=== PATIENT | male | born 1950 | race African-American/Black ===

== ENCOUNTER 2016-07-10 00:20 | Emergency (ER) | payer MEDICARE, MEDICAID, OTHER ==
[~2016-07-10 00:20] MED LIST: 1-ME1LIQ PO; ADVI200C9 PO; AMLO10 PO; ASPI1TAB7 PO; BENZ1TAB PO; DEPA500T PO; DEPA500T3 PO; FERR324T4 PO; FURO1TAB93 PO; HYDR-2768 PO; Haldol Decanoate IM; INVEGA SUSTENNA IM; LATUDA PO; LORA-474 PO; MELO15 PO; METO50TA PO; METOPROLOL ER PO; OLAN15TA PO; OLAN5TAB PO; PALI234P IM; SODI1 PO; SPIR25TA PO; TYLE500T PO; [UNRECOGNIZED DRUG - OTHER] TOP
[2016-07-10 01:03] VITALS: BP 130/71; PULSE 57; RESP 14; TEMP 97.4; O2SAT 99
--- NOTE | 2016-07-10 01:03 | PD ---
HPI Chief Complaint: Abnormal Results Time Seen by Provider: 01:00 Travel History International Travel<30 days: No Contact w/Intl Traveler<30days: No History of Present Illness HPI The patient is a 66 year old male who presents to the [facility] emergency department with a history of mental health issues, currently residing at [facility] who arrives in the emergency department under a Enriquez act. The patient refuses to give any history. He reports that he feels well over like to go back home. According to the Enriquez act the patient has a history of schizophrenia and is on multiple psychiatric medications. The patient was noted to have blood work done that showed his sodium was low at 123. They sent him to the emergency department for concerns about weakness and the possibility of seizing if the sodium went lower. The patient denies having any acute complaints. The patient refuses to provide any other history. [facility] Past Medical History Narrative Medical The patient's past medical history is significant for schizophrenia, hypertension, hepatitis C. Anxiety: No Depression: Yes Cerebrovascular Accident: Yes Endocrine: No Genitourinary: No Hepatitis: Yes (Hep C) Hypertension: Yes Immune Disorder: No Psychiatric: Yes Reproductive: No Respiratory: No Schizophrenia: Yes PNEUMOCCOCAL Vaccine (Year): 3 Past Surgical History Narrative Surgical The patient's past surgical history is not able to be obtained as the patient refuses to provide it. Social History Alcohol Use: No Tobacco Use: No Substance Use: No Allergies-Medications (Allergen,Severity, Reaction): Coded Allergies: No Known Allergies (Verified , 07/10/16) Reported Meds & Prescriptions Reported Meds & Active Scripts Active Reported Spironolactone 25 Mg Tab 25 Mg PO DAILY Olanzapine 15 Mg Tab 15 Mg PO HS Olanzapine 5 Mg Tab 5 Mg PO DAILY Metoprolol Tartrate 50 mg (Metoprolol Tartrate) 50 Mg Tab 50 Mg PO BID Mobic 15 Mg Tab (Meloxicam) 15 Mg Tab 15 Mg PO DAILY Invega Sustenna (Paliperidone Palmitate) 234 Mg/1.5 Ml Inj 234 Mg IM EVERY 4 WEEKS *FOR INTRAMUSCULAR USE ONLY* Lasix (Furosemide) 40 Mg Tab 40 Mg PO DAILY Aspirin 81 mg Tab (Aspirin) 81 Mg Tab 162 Mg PO DAILY Norvasc (Amlodipine Besylate) 10 Mg Tab 10 Mg PO DAILY Depakote ER 500 mg (Divalproex Sodium) 500 Mg Rosales 1,000 Mg PO HS Depakote ER 500 mg (Divalproex Sodium) 500 Mg Rosales 500 Mg PO DAILY Review of Systems ROS Limitations: Poor Historian Except as stated in HPI: all other systems reviewed are Neg General / Constitutional: No: Fever Eyes: No: Visual changes HENT: No: Headaches Cardiovascular: No: Chest Pain or Discomfort Respiratory: No: Shortness of Breath Gastrointestinal: No: Abdominal Pain Genitourinary: No: Dysuria Musculoskeletal: No: Pain Skin: No Rash Neurologic: No: Weakness, Focal Abnormalities, Change in Mentation, Paresthesia , Sensory Disturbance Psychiatric: Positive: Mood Disorder, No: Depression, Suicidal Ideations, Homicidal Ideation Endocrine: No: Polydipsia Hematologic/Lymphatic: No: Easy Bruising Physical Exam Narrative General: The patient is a well-developed well-nourished male in no acute distress. Head and Neck exam: Head is normocephalic atraumatic. Eyes: The patient is uncooperative with formal extraocular motion testing. The patient appears to have conjugate gaze when looking about the room. Pupils are equal round and reactive to light. Nose: Midline septum with pink mucous membranes Mouth: Dentition unremarkable. Moist mucus membranes. Posterior oropharynx is not erythematous. No tonsillar hypertrophy. Uvula midline. Airway patent. Neck: No palpable lymphadenopathy. No nuchal rigidity. No thyromegaly. Cardiovascular: Regular rate and rhythm without murmurs, gallops, or rubs. Lungs: Clear to auscultation bilaterally. No wheezes, rhonchi, or rales. Abdomen: Soft, without tenderness to palpation in all 4 quadrants of the abdomen. No guarding, rebound, or rigidity. Normal bowel sounds are audible. No tenderness on palpation of McBurney's point. Extremities: No clubbing or cyanosis. The patient has trace pedal edema bilateral lower extremities. 2+ pulses in all 4 extremities. No calf tenderness on palpation. Back: No spinous process tenderness to palpation. No costovertebral angle tenderness to palpation. Neurologic Exam: The patient is uncooperative with formal neurologic testing. The patient has no evidence of facial asymmetry. The patient is moving all extremities equally and able to walk without assistance. The patient has intact sensation over all dermatomes. Skin Exam: No rash noted. Intact skin that is warm and dry. Data Data Last Documented VS Vital Signs Date Time Temp Pulse Resp B/P Pulse Ox O2 Delivery O2 Flow Rate FiO2 07/10/16 07:00 66 18 119/77 96 Room Air 07/10/16 01:03 97.4 Orders Electrocardiogram (07/10/16 01:01) Complete Blood Count With Diff (07/10/16 01:01) Comprehensive Metabolic Panel (07/10/16 01:01) B-Type Natriuretic Peptide (07/10/16 01:01) Urinalysis - C+S If Indicated (07/10/16 01:01) Magnesium (Mg) (07/10/16 01:01) Valproic Acid (Depakene) (07/10/16 01:01) Osmolality, Urine (07/10/16 01:01) Osmolality,Serum (07/10/16 01:01) Chest, Single Ap (07/10/16 01:01) Iv Access Insert/Monitor (07/10/16 01:01) Ecg Monitoring (07/10/16 01:01) Oximetry (07/10/16 01:01) Drug Screen, Random Urine (07/10/16 01:01) Alcohol (Ethanol) (07/10/16 01:01) Sodium, Random Urine (07/10/16 01:01) Psych Screen (07/10/16 02:28) Labs Laboratory Tests Test 07/10/16 07/10/16 01:30 02:25 White Blood Count 5.0 TH/MM3 Red Blood Count 4.07 MIL/MM3 Hemoglobin 11.9 GM/DL Hematocrit 35.5 % Mean Corpuscular Volume 87.3 FL Mean Corpuscular Hemoglobin 29.2 PG Mean Corpuscular Hemoglobin 33.4 % Concent Red Cell Distribution Width 13.3 % Platelet Count 168 TH/MM3 Mean Platelet Volume 8.9 FL Neutrophils (%) (Auto) 30.4 % Lymphocytes (%) (Auto) 55.3 % Monocytes (%) (Auto) 8.8 % Eosinophils (%) (Auto) 4.8 % Basophils (%) (Auto) 0.7 % Neutrophils # (Auto) 1.5 TH/MM3 Lymphocytes # (Auto) 2.7 TH/MM3 Monocytes # (Auto) 0.4 TH/MM3 Eosinophils # (Auto) 0.2 TH/MM3 Basophils # (Auto) 0.0 TH/MM3 CBC Comment DIFF FINAL Differential Comment Sodium Level 131 MEQ/L Potassium Level 4.6 MEQ/L Chloride Level 95 MEQ/L Carbon Dioxide Level 30.8 MEQ/L Anion Gap 5 MEQ/L Blood Urea Nitrogen 10 MG/DL Creatinine 1.20 MG/DL Estimat Glomerular Filtration 74 ML/MIN Rate Random Glucose 90 MG/DL Serum Osmolality 275 MOSM/KG Calcium Level 9.0 MG/DL Magnesium Level 2.0 MG/DL Total Bilirubin 0.3 MG/DL Aspartate Amino Transf 22 U/L (AST/SGOT) Alanine Aminotransferase 22 U/L (ALT/SGPT) Alkaline Phosphatase 58 U/L B-Type Natriuretic Peptide 23 PG/ML Total Protein 6.9 GM/DL Albumin 3.6 GM/DL Valproic Acid (Depakene) Level 77 MCG/ML Ethyl Alcohol Level LESS THAN 3 MG/DL Urine Color COLORLESS Urine Turbidity CLEAR Urine pH 7.0 Urine Specific [place] 1.002 Urine Protein NEG mg/dL Urine Glucose (UA) NEG mg/dL Urine Ketones NEG mg/dL Urine Occult Blood NEG Urine Nitrite NEG Urine Bilirubin NEG Urine Urobilinogen LESS THAN 2.0 MG/DL Urine Leukocyte Esterase NEG Urine RBC LESS THAN 1 /hpf Urine WBC 1 /hpf Urine Bacteria RARE /hpf Microscopic Urinalysis Comment CULT NOT INDICATED Urine Osmolality 104 MOSM/KG Urine Random Sodium 26 MEQ/L Urine Opiates Screen NEG Urine Barbiturates Screen NEG Urine Amphetamines Screen NEG Urine Benzodiazepines Screen NEG Urine Cocaine Screen NEG Urine Cannabinoids Screen NEG [facility] Medical Decision Making Medical Screen Exam Complete: Yes Emergency Medical Condition: Yes Medical Record Reviewed: Yes Interpretation(s) Last Impressions Chest X-Ray 07/10/16 0101 Signed Impressions: Service Date/Time: Sunday, July 10, 2016 01:00 - CONCLUSION: Normal examination. Jesse Rabago MD Differential Diagnosis Hyponatremia related to medication side effect, versus fluid overload, versus increased by mouth water intake, versus renal insufficiency Narrative Course During the course of the patients emergency department visit, the patients history, examination, and differential diagnosis were reviewed with the patient. The patient had IV access obtained and blood work sent for analysis. The patient's Enriquez act was reviewed. A psychiatric screen was ordered. The patient had an EKG done on arrival. The patient's EKG shows a sinus bradycardia , heart rate of 54, no acute ST segment elevation or depression. The patients laboratory studies were reviewed and remarkable for a white count of 5, hemoglobin 11.9, platelets 168 with lymphocytes 55.3, monocytes 8.8, CMP is remarkable for sodium of 131, chloride 95, GFR 74, BNP is 23, albumin 3.6, serum osmolality is 275, urinalysis is unremarkable, urinalysis osmolality is 104, urinary sodium is 26, urine drug screen is negative, Depakote level LXXVII , alcohol level is less than 3. Radiology studies were reviewed and remarkable for a chest x-ray that shows no acute abnormality. As the patient's sodium was 131. This does not meet admission criteria. The patient is asymptomatic. The patient has been medically cleared for evaluation under a Enriquez act. Diagnosis Primary Impression: Hyponatremia Additional Impression: History of schizophrenia Anni Pond MD Jul 10, 2016 01:03
[2016-07-10 01:12] VITALS: RESP 16; O2SAT 99
--- NOTE | 2016-07-10 01:35 | RADRPT ---
EXAM DATE/TIME: 07/10/2016 01:00 [facility] COMPARISON: CHEST SINGLE AP, August 09, 2014, 14:05. INDICATIONS : Cough. MEDICAL HISTORY : None. SURGICAL HISTORY : None. ENCOUNTER: Initial ACUITY: 1 day PAIN SCORE: 0/10 LOCATION: Bilateral chest FINDINGS: A single view of the chest demonstrates the lungs to be symmetrically aerated without evidence of mas s, infiltrate or effusion. The cardiomediastinal contours are unremarkable. Osseous structures are intact. CONCLUSION: Normal examination. Jesse Rabago MD on July 10, 2016 at 1:34 Board Certified Radiologist. This report was verified electronically.
[2016-07-10 01:43] LABS: AUTOMATED NEUTROPHIL # 1.5 TH/MM3 (1.8-7.7); BASOPHIL % 0.7 % (0.0-2.0); EOSINOPHIL # 0.2 TH/MM3 (0-0.4); EOSINOPHIL % 4.8 % (0.0-4.0); HEMATOCRIT 35.5 % (39.0-51.0); HEMO FLAGS DIFF FINAL; LYMPH % 55.3 % (9.0-44.0); LYMPHOCYTE # 2.7 TH/MM3 (1.0-4.8); MEAN CELL VOLUME 87.3 FL (80.0-100.0); MEAN CORPUSCULAR HEMOGLOBIN 29.2 PG (27.0-34.0); MEAN CORPUSCULAR HGB CONC 33.4 % (32.0-36.0); MONO % 8.8 % (0.0-8.0); NEUT % 30.4 % (16.0-70.0); PLATELET COUNT 168 TH/MM3 (150-450); RED BLOOD COUNT 4.07 MIL/MM3 (4.50-5.90); RED CELL DISTRIBUTION WIDTH 13.3 % (11.6-17.2)
[2016-07-10 01:59] LABS: ALT (GPT) 22 U/L (12-78); ANION GAP 5 MEQ/L (5-15); AST (GOT) 22 U/L (15-37); BICARBONATE 30.8 MEQ/L (21.0-32.0); BLOOD UREA NITROGEN 10 MG/DL (7-18); CHLORIDE 95 MEQ/L (98-107); GLOMERULAR FILTRATION RATE 74 ML/MIN (>89); POTASSIUM 4.6 MEQ/L (3.5-5.1); SODIUM (NA) 131 MEQ/L (136-145)
[2016-07-10 02:00] LABS: ALKALINE PHOSPHATASE 58 U/L (45-117); TOTAL BILIRUBIN ADULT 0.3 MG/DL (0.2-1.0)
[2016-07-10 02:43] LABS: BACTERIA, URINE RARE /hpf; BLOOD, URINE NEG (NEG); COMMENT (UR) CULT NOT INDICATED; CULTURE IF INDICATED CULT NOT INDICATED; GLUCOSE,URINE NEG (NEG); KETONE, URINE NEG (NEG); NITRITE,URINE NEG (NEG); URINE COLOR COLORLESS (YELLW/STRAW)
[2016-07-10 02:49] LABS: AMPHETAMINE, URINE NEG (NEG); BARBITURATES, URINE NEG (NEG); COCAINE, URINE NEG (NEG)
[2016-07-10 07:00] VITALS: BP 119/77; PULSE 66; RESP 18; O2SAT 96
--- NOTE | 2016-07-10 13:31 | PD ---
History of Present Illness Chief Complaint: Abnormal Results Time Seen by Provider: 12:05 Travel History International Travel<30 Days: No Contact w/Intl Traveler<30days: No Known affected area: No Legal Status Legal Status: Enriquez Act Enriquez Act Signed By: Mina Act Comment: [place] Michelle History of Present Illness: History of Present Illness The patient is a 66 year old male with history of schizophrenia currently residing at [facility] who arrives in the emergency department under a Enriquez act initiated by a psychologist at the [facility]. As per the BA report the patient had blood work done and presented a low sodium and refused to seek medical attention.. They sent him to the emergency department for concerns about weakness and the possibility medical complications if the sodium went lower. The patient denies having any acute complaints. The patient's sodium was repeated and it was 131. The patient is seen in main ED. He is awake, alert and oriented male who is dressed casually and maintaining basic hygiene. He is edentulous and speaks in a low voice making it difficult to understand . he is cooperative. He denies any current hallucinatory process and denies any suicidal ideation, intent or plan. he is compliant here in ED with all procedures. he tells me that he is medication compliant and receives his psychiatric care at [facility]. His last psychiatric admission was in 2011. PFSH Past Medical History Anxiety: No Depression: Yes Cerebrovascular Accident: Yes Diminished Hearing: No Endocrine: No Genitourinary: No Hepatitis: Yes (Hep C) Hypertension: Yes Immune Disorder: No Psychiatric: Yes Reproductive: No Respiratory: No Schizophrenia: Yes PNEUMOCCOCAL Vaccine (Year): 3 Psychiatric History Psychiatric History Hx Psychiatric Treatment: HX SCHIZOPHRENIA [place]: [place] [place] Guns or firearms in home: No Social History Single male. lives in [facility]. On disability Hx Alcohol Use: No Hx Tobacco Use: No Hx Substance Use: No Substance Use Type: Alcohol, Nicotine/Cigarettes Other Substances Used: CASUAL DRINKS ALCOHOL AND SMOKES Hx of Substance Use Treatment: Yes Family Psychiatric History None Allergies-Medications (Allergen,Severity, Reaction): Coded Allergies: No Known Allergies (Verified , 07/10/16) Reported Meds & Prescriptions Reported Meds & Active Scripts Active Reported Spironolactone 25 Mg Tab 25 Mg PO DAILY Olanzapine 15 Mg Tab 15 Mg PO HS Olanzapine 5 Mg Tab 5 Mg PO DAILY Metoprolol Tartrate 50 mg (Metoprolol Tartrate) 50 Mg Tab 50 Mg PO BID Mobic 15 Mg Tab (Meloxicam) 15 Mg Tab 15 Mg PO DAILY Invega Sustenna (Paliperidone Palmitate) 234 Mg/1.5 Ml Inj 234 Mg IM EVERY 4 WEEKS *FOR INTRAMUSCULAR USE ONLY* Lasix (Furosemide) 40 Mg Tab 40 Mg PO DAILY Aspirin 81 mg Tab (Aspirin) 81 Mg Tab 162 Mg PO DAILY Norvasc (Amlodipine Besylate) 10 Mg Tab 10 Mg PO DAILY Depakote ER 500 mg (Divalproex Sodium) 500 Mg Rosales 1,000 Mg PO HS Depakote ER 500 mg (Divalproex Sodium) 500 Mg Rosales 500 Mg PO DAILY Review of Systems Except as stated in HPI: all other systems reviewed are Neg Psychiatric: DENIES: Anxiety, Confusion, Mood changes, Depression, Hallucinations, Agitation, Suicidal Ideation, Homicidal Ideation, Delusions Exam Alert: Yes [place]: Person (ox4) Mood: Calm Affect: Appropriate Speech: Clear, Logical (low tone) Eye Contact: Normal Memory Intact: Immediate (no impairmetn noted. ) Hallucinations: Other (denies any at present) Delusions: No Suicidal: Ideation (deneis any) Homicidal: Ideation (deneis any) Insight/Judgement Fair. Not impaired. MDM Medical Decision Making Medical Record Reviewed: Yes Assessment/Plan 66 year old male with hx of schizophrenia who is under a BA after he had laboratory work and was found to have a low sodium level. He was BA as he refused to seek medical attention. The patient presents no active hallucinations , no paranoia and no suicidal or homicidal ideation, intent or plan. He has complied with all procedures here in ED and no abnormalities are noted. At this time this patient does not meet criteria for BA. He will be discharged to his WILL and will follow up with ACT. Orders Electrocardiogram (07/10/16 01:01) Complete Blood Count With Diff (07/10/16 01:01) Comprehensive Metabolic Panel (07/10/16 01:01) B-Type Natriuretic Peptide (07/10/16 01:01) Urinalysis - C+S If Indicated (07/10/16 01:01) Magnesium (Mg) (07/10/16 01:01) Valproic Acid (Depakene) (07/10/16 01:01) Osmolality, Urine (07/10/16 01:01) Osmolality,Serum (07/10/16 01:01) Chest, Single Ap (07/10/16 01:01) Iv Access Insert/Monitor (07/10/16 01:01) Ecg Monitoring (07/10/16 01:01) Oximetry (07/10/16 01:01) Drug Screen, Random Urine (07/10/16 01:01) Alcohol (Ethanol) (07/10/16 01:01) Sodium, Random Urine (07/10/16 01:01) Psych Screen (07/10/16 02:28) Results Vital Signs Date Time Temp Pulse Resp B/P Pulse Ox O2 Delivery O2 Flow Rate FiO2 07/10/16 07:00 66 18 119/77 96 Room Air 07/10/16 01:12 16 99 Room Air 07/10/16 01:10 53 16 98 Room Air 07/10/16 01:03 97.4 57 14 130/71 99 Laboratory Tests Test 07/10/16 07/10/16 01:30 02:25 White Blood Count 5.0 Red Blood Count 4.07 Hemoglobin 11.9 Hematocrit 35.5 Mean Corpuscular Volume 87.3 Mean Corpuscular Hemoglobin 29.2 Mean Corpuscular Hemoglobin 33.4 Concent Red Cell Distribution Width 13.3 Platelet Count 168 Mean Platelet Volume 8.9 Neutrophils (%) (Auto) 30.4 Lymphocytes (%) (Auto) 55.3 Monocytes (%) (Auto) 8.8 Eosinophils (%) (Auto) 4.8 Basophils (%) (Auto) 0.7 Neutrophils # (Auto) 1.5 Lymphocytes # (Auto) 2.7 Monocytes # (Auto) 0.4 Eosinophils # (Auto) 0.2 Basophils # (Auto) 0.0 CBC Comment DIFF FINAL Differential Comment Sodium Level 131 Potassium Level 4.6 Chloride Level 95 Carbon Dioxide Level 30.8 Anion Gap 5 Blood Urea Nitrogen 10 Creatinine 1.20 Estimat Glomerular Filtration 74 Rate Random Glucose 90 Serum Osmolality 275 Calcium Level 9.0 Magnesium Level 2.0 Total Bilirubin 0.3 Aspartate Amino Transf 22 (AST/SGOT) Alanine Aminotransferase 22 (ALT/SGPT) Alkaline Phosphatase 58 B-Type Natriuretic Peptide 23 Total Protein 6.9 Albumin 3.6 Valproic Acid (Depakene) Level 77 Ethyl Alcohol Level LESS THAN 3 Urine Color COLORLESS Urine Turbidity CLEAR Urine pH 7.0 Urine Specific [place] 1.002 Urine Protein NEG Urine Glucose (UA) NEG Urine Ketones NEG Urine Occult Blood NEG Urine Nitrite NEG Urine Bilirubin NEG Urine Urobilinogen LESS THAN 2.0 Urine Leukocyte Esterase NEG Urine RBC LESS THAN 1 Urine WBC 1 Urine Bacteria RARE Microscopic Urinalysis Comment CULT NOT INDICATED Urine Osmolality 104 Urine Random Sodium 26 Urine Opiates Screen NEG Urine Barbiturates Screen NEG Urine Amphetamines Screen NEG Urine Benzodiazepines Screen NEG Urine Cocaine Screen NEG Urine Cannabinoids Screen NEG Diagnosis Primary Impression: Hyponatremia Additional Impression: schiZophrenia Psychiatrically Cleared: Yes Departure Forms: Tests/Procedures Patient Instructions: General Instructions Med/ Other Pt Specific Info: No Change to Meds Disposition: 01 DISCHARGE HOME Condition: Stable Problem Qualifiers Leann Wells Jul 10, 2016 13:31
--- NOTE | 2016-07-10 22:29 | EKG ---
Date Performed: 07/10/2016 Time Performed: 01:20:41 PTAGE: 66 years EKG: SINUS BRADYCARDIA WITH FIRST DEGREE AV BLOCK ABNORMAL ECG PREVIOUS TRACING : 08/09/2014 14.32 Compared to prior tracing no significant change DOCTOR: Juan C Redding Interpretating Date/Time 07/10/2016 22:28:18
== END 2016-07-10 13:03 | disposition home or self-care (01) ==
LOC: NEPE 00:20 → NEDAMB 13:03
DX: E87.1 Hypo-osmolality and hyponatremia (principal); F20.9 Schizophrenia, unspecified; R53.1 Weakness; F32.9 Major depressive disorder, single episode, unspecified; Z86.73 Personal history of transient ischemic attack (TIA), and cerebral infarction without residual deficits; I10 Essential (primary) hypertension; R94.31 Abnormal electrocardiogram [ECG] [EKG]
CPT/HCPCS: 71010; 80053; 80164; 80307; 81001; 83735; 83880; 83930; 83935; 84300; 85025; 93005

== ENCOUNTER 2016-07-22 10:34 | Inpatient (IN) | payer MEDICARE, MEDICAID ==
[2016-07-22] VITALS (9 sets, daily range): BP systolic 96–143; BP diastolic 62–71; PULSE 71–126; RESP 13–18; TEMP 98–100.4; O2SAT 94–98
[~2016-07-22] VITALS: Ht 182.9 cm; Wt 81.1 kg
[~2016-07-22 10:34] MED LIST changes: -1-ME1LIQ PO; -ADVI200C9 PO; -BENZ1TAB PO; -DEPA500T PO; -FERR324T4 PO; -HYDR-2768 PO; -Haldol Decanoate IM; -INVEGA SUSTENNA IM; -LATUDA PO; -LORA-474 PO; -METOPROLOL ER PO; -SODI1 PO; -TYLE500T PO; -[UNRECOGNIZED DRUG - OTHER] TOP
[2016-07-22] MEDS ORDERED: NALOXONE HCL 0.4 MG/ML AMP ONE (10:37)
[2016-07-22] MEDS ORDERED: SODIUM CHLOR 0.9% 1000 ML INJ 1,000 ML IV ONE (10:41)
[2016-07-22 11:00] LABS: AUTOMATED NEUTROPHIL # 2.6 TH/MM3 (1.8-7.7); BASOPHIL % 0.5 % (0.0-2.0); EOSINOPHIL % 0.1 % (0.0-4.0); HEMO FLAGS DIFF FINAL; LYMPHOCYTE # 1.2 TH/MM3 (1.0-4.8); MEAN CELL VOLUME 86.6 FL (80.0-100.0); MEAN CORPUSCULAR HEMOGLOBIN 28.5 PG (27.0-34.0); MONO % 11.8 % (0.0-8.0); NEUT % 60.6 % (16.0-70.0); PLATELET COUNT 130 TH/MM3 (150-450); RED BLOOD COUNT 3.81 MIL/MM3 (4.50-5.90); RED CELL DISTRIBUTION WIDTH 13.4 % (11.6-17.2); WHITE BLOOD COUNT 4.3 TH/MM3 (4.0-11.0)
--- NOTE | 2016-07-22 11:02 | RADRPT ---
EXAM DATE/TIME: 07/22/2016 10:47 [facility] COMPARISON: CT BRAIN W/O CONTRAST, August 09, 2014, 14:33. INDICATIONS : Stroke alert, expressive aphasia. RADIATION DOSE: 42.53 CTDIvol (mGy) This report was called by Aidee Redding at 1059 MEDICAL HISTORY : Non-responsive. SURGICAL HISTORY : Non-responsive. ENCOUNTER: Initial ACUITY: 1 day PAIN SCALE: Non-responsive LOCATION: Bilateral head TECHNIQUE: Multiple contiguous axial images were obtained of the head. Using automated exposure control and adj ustment of the mA and/or kV according to patient size, radiation dose was kept as low as reasonably a chievable to obtain optimal diagnostic quality images. FINDINGS: There is no evidence of intracranial mass or hemorrhage. There is nothing to suggest acute infarction . Ventricles are symmetric and normal. There is mild mucosal sinus disease. CONCLUSION: No acute intracranial findings. Brock Hoskins MD on July 22, 2016 at 10:57 Board Certified Radiologist. This report was verified electronically.
[2016-07-22 11:10] LABS: APTT (PATIENT) 30.9 SEC (24.3-30.1); PROTHROMBIN TIME - PATIENT 10.8 SEC (9.8-11.6)
--- NOTE | 2016-07-22 11:11 | PD ---
HPI Chief Complaint: Stroke Alert Time Seen by Provider: 10:41 Travel History International Travel<30 days: No Contact w/Intl Traveler<30days: No Traveled to known affect area: No History of Present Illness HPI 66-year-old male arrives as a stroke alert. About 1 hour prior to ER arrival he had a change in his speech. EMS also noticed a right facial droop and right pronator drift and called ahead for stroke alert. EMS notes a sinus rate of about 80. Blood pressure about 110 over palp. In ER he answers questions occasionally sometimes laterally sometimes in a whispering manner which is practically incomprehensible. His cooperativity with exam is marginal requiring numerous assessments and reassessments. He complains of left ankle pain. He states he wants to smoke cigarettes. 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 History is otherwise limited. PFSH Past Medical History Anxiety: No Depression: Yes Cerebrovascular Accident: Yes Diminished Hearing: No Endocrine: No Genitourinary: No Hepatitis: Yes (Hep C) Hypertension: Yes Immune Disorder: No Psychiatric: Yes Reproductive: No Respiratory: No Schizophrenia: Yes PNEUMOCCOCAL Vaccine (Year): 3 Social History Alcohol Use: No Tobacco Use: No Substance Use: No Allergies-Medications (Allergen,Severity, Reaction): Coded Allergies: No Known Allergies (Verified , 07/22/16) Reported Meds & Prescriptions Reported Meds & Active Scripts Active Review of Systems Except as stated in HPI: all other systems reviewed are Neg General / Constitutional: No: Fever Physical Exam Narrative GENERAL: 66 yo M, WNWD, mild distress SKIN: Warm and dry. HEAD: Atraumatic. Normocephalic. EYES: Pupils equal and round. No scleral icterus. No injection or drainage. ENT: No nasal bleeding or discharge. Mucous membranes pink and moist. NECK: Trachea midline. No JVD. CARDIOVASCULAR: Regular rate and rhythm. RESPIRATORY: No accessory muscle use. Clear to auscultation. Breath sounds equal bilaterally. GASTROINTESTINAL: Abdomen soft, non-tender, nondistended. Hepatic and splenic margins not palpable. MUSCULOSKELETAL: Extremities without clubbing, cyanosis, or edema. No obvious deformities. NEUROLOGICAL: He is alert and oriented 3, knows who the president is and is able to read sentences off the strep assessment pictograms. Trace R facial droop. Cranial nerves are otherwise normal. Pronator drift RUE < 10 seconds. Hand internet consultant R < L. motor function in the lower extremities is normal. PSYCHIATRIC: Appropriate mood and affect; insight and judgment normal. Data Data Last Documented VS Vital Signs Date Time Temp Pulse Resp B/P Pulse Ox O2 Delivery O2 Flow Rate FiO2 07/22/16 11:07 96 Nasal Cannula 2 07/22/16 10:37 71 13 96/62 Temp 97.7 axillary Orders Naloxone Inj (Narcan Inj) (07/22/16 10:37) Diet Npo (07/22/16 Lunch) Activity Bed Rest (07/22/16 ) Electrocardiogram (07/22/16 ) I-Stat Creatinine (07/22/16 10:41) I-Stat Profile (07/22/16 10:41) Prothrombin Time / Inr (Pt) (07/22/16 10:41) Act Partial Throm Time (Ptt) (07/22/16 10:41) Complete Blood Count With Diff (07/22/16 10:41) Fibrinogen (07/22/16 10:41) Creatine Kinase (Cpk) (07/22/16 10:41) Troponin I (07/22/16 10:41) Ua Includes Microscopic (07/22/16 10:41) Drug Screen, Random Urine (07/22/16 10:41) Type And Screen (07/22/16 10:41) Ct Brain W/O Iv Contrast(Rout) (07/22/16 ) Consult Neurology (07/22/16 ) Blood Glucose (07/22/16 10:41) Ecg Monitoring (07/22/16 10:41) Neuro Checks Q2HX12,Q4H (07/22/16 10:41) Nursing Bedside Swallow Assess .ONCE (07/22/16 10:41) Iv Access Insert/Monitor (07/22/16 10:41) NPO (07/22/16 10:41) Oximetry (07/22/16 10:41) Oxygen Administration (07/22/16 10:41) Sodium Chlor 0.9% 1000 Ml Inj (Ns 1000 M (07/22/16 10:41) Resp Oxygen Maykel C Titrat 1-4 L (07/22/16 10:41) Cath For Specimen (07/22/16 10:41) Comprehensive Metabolic Panel (07/22/16 11:06) ^ Call Pharmacy (07/22/16 11:11) Nih Stroke Scale - Nihss .ONCE (07/22/16 11:11) Urinary Catheter Management BURAK.Q8H (07/22/16 11:11) Urinary Catheter Insert/Apply (07/22/16 11:11) Anticoagulant Alert (07/22/16 11:11) ^ Post Infusion Restrictions (07/22/16 11:11) ^ Medication Alert (07/22/16 11:11) Vital Signs (Adult) .As directed (07/22/16 11:11) Notify Dr: Blood Pressure (07/22/16 11:11) ^ Medication Alert (07/22/16 11:11) Alteplase Bolus (Activase Bolus) (07/22/16 11:15) Alteplase Drip (Activase Drip) (07/22/16 11:15) Sodium Chloride 0.9% Inj (Ns Inj) (07/22/16 11:15) Misc Nursing Information (07/22/16 11:15) Resp Oxygen Maykel C Titrat 1-4 L (07/22/16 ) (Hub Use Only)Inp Phy Cons/Ref (07/22/16 ) CKMB (07/22/16 10:41) CKMB% (07/22/16 10:41) Clopidogrel (Plavix) (07/22/16 12:00) Admit Order (Ed Use Only) (07/22/16 11:46) Labs Laboratory Tests Test 07/22/16 07/22/16 10:41 11:45 White Blood Count 4.3 TH/MM3 Red Blood Count 3.81 MIL/MM3 Hemoglobin 10.9 GM/DL Bedside Hemoglobin 11.6 G/DL Hematocrit 33.0 % Bedside Hematocrit 34.0 % Mean Corpuscular Volume 86.6 FL Mean Corpuscular Hemoglobin 28.5 PG Mean Corpuscular Hemoglobin 33.0 % Concent Red Cell Distribution Width 13.4 % Platelet Count 130 TH/MM3 Mean Platelet Volume 9.2 FL Neutrophils (%) (Auto) 60.6 % Lymphocytes (%) (Auto) 27.0 % Monocytes (%) (Auto) 11.8 % Eosinophils (%) (Auto) 0.1 % Basophils (%) (Auto) 0.5 % Neutrophils # (Auto) 2.6 TH/MM3 Lymphocytes # (Auto) 1.2 TH/MM3 Monocytes # (Auto) 0.5 TH/MM3 Eosinophils # (Auto) 0.0 TH/MM3 Basophils # (Auto) 0.0 TH/MM3 CBC Comment DIFF FINAL Differential Comment Prothrombin Time 10.8 SEC Prothromb Time International 1.0 RATIO Ratio Activated Partial 30.9 SEC Thromboplast Time Fibrinogen 220 mg/dL Bedside Sodium 123 MMOL/L Bedside Potassium 4.0 MMOL/L Bedside Chloride 86 MMOL/L Bedside Blood Urea Nitrogen 29 MG/DL Bedside Creatinine 2.3 MG/DL Bedside Glucose 113 MG/DL Total Creatine Kinase 825 U/L Creatine Kinase MB 7.5 NG/ML Creatine Kinase MB % 0.9 % Troponin I 0.02 NG/ML Blood Type O POSITIVE Antibody Screen NEGATIVE Blood Bank Comment Urine Color YELLOW Urine Turbidity CLEAR Urine pH 6.0 Urine Specific [place] 1.007 Urine Protein NEG mg/dL Urine Glucose (UA) NEG mg/dL Urine Ketones NEG mg/dL Urine Occult Blood NEG Urine Nitrite NEG Urine Bilirubin NEG Urine Urobilinogen LESS THAN 2.0 MG/DL Urine Leukocyte Esterase NEG Urine RBC LESS THAN 1 /hpf Urine Bacteria RARE /hpf Urine Opiates Screen NEG Urine Barbiturates Screen NEG Urine Amphetamines Screen NEG Urine Benzodiazepines Screen NEG Urine Cocaine Screen NEG Urine Cannabinoids Screen NEG MDM Medical Screen Exam Complete: Yes Emergency Medical Condition: Yes Medical Record Reviewed: Yes Differential Diagnosis Stroke, TIA, metabolic abnormality, polypharmacy, psychogenic disease Narrative Course CBC & BMP Diagram 07/22/16 10:41 Tn 0.02 Total CK 825 POC Na 123 POC Cl 86 POC BUN 29 POC Glucose 113 POC Cr 2.3 EKG: Sinus, rate rate 78, normal axis/intervals U Tox: vargas-negative UA: No UTI PT/INR: 10.8/1.0 PTT: 30.9 Last [address] 07/22/16 0000 Signed Impressions: Service Date/Time: Friday, July 22, 2016 10:47 - CONCLUSION: No acute intracranial findings. Brock Hoskins MD Pt has capacity for independent decision making. At 1125AM he refused TPA. NIHSS 5. Pt understands permanent weakness/disability may result. At least 40 minutes was spent with the patient discussing risks/benefits alternatives. Case d/w Dr Diallo for neurology. Case d/w Dr Brandon for [facility]. Plavix added. Critical Care Narrative Aggregate critical care time was 60 minutes. Time to perform other separately billable procedures was not included in the critical care time. My time did not include minutes spent treating any other patients simultaneously or on activities that did not directly contribute to the patient's treatment. The services I provided to this patient were to treat and/or prevent clinically significant deterioration that could result in: Permanent weakness, failure to treat stroke, intracranial hemorrhage I provided critical care services requiring my management, as noted below: Chart data review, documentation time, medication orders and management, vital sign assessments/reviewing monitor data, ordering and reviewing lab tests, ordering and interpreting/reviewing x-rays and diagnostic studies, care of the patient and discussion of the patient with the admitting physicians. Stroke Alert NIHSS NIH Stroke Scale Result: 5 NIHSS Time Completed: 10:40 Thrombolytic Contraindications Contraindications: Refusal of Treatment Diagnosis Diagnosis: Primary Impression: Stroke Qualified Code: I63.9 - Cerebrovascular accident (CVA), unspecified mechanism Additional Impression: HERMAN (acute kidney injury) Admitting Physician Requests: David Rodgers MD July 22, 2016 11:11 Primary Impression: Stroke Qualified Code: I63.9 - Cerebrovascular accident (CVA), unspecified mechanism Additional Impression: HERMAN (acute kidney injury) Admitting Physician Requests: David Rodgers MD July 22, 2016 11:11
[2016-07-22] MEDS ORDERED: SODIUM CHLORIDE 0.9% 50 ML BAG IVF ONE (11:15)
[2016-07-22] MEDS ORDERED: ALTEPLASE DRIP IV ONE (11:15)
[2016-07-22] MEDS ORDERED: ALTEPLASE BOLUS 9 MG/9 ML SYR IV ONE (11:15)
[2016-07-22] MEDS ORDERED: MISCELLANEOUS NURSING INFORMATION XX PRN (11:15)
[2016-07-22 11:31] LABS: CKMB 7.5 NG/ML (0.5-3.6)
[2016-07-22] MEDS ORDERED: CLOPIDOGREL 75 MG TAB PO ONE (12:00)
[2016-07-22 12:27] LABS: BACTERIA, URINE RARE /hpf; BLOOD, URINE NEG (NEG); GLUCOSE,URINE NEG (NEG); KETONE, URINE NEG (NEG); NITRITE,URINE NEG (NEG); URINE COLOR YELLOW (YELLW/STRAW)
[2016-07-22 12:31] LABS: AMPHETAMINE, URINE NEG (NEG); BARBITURATES, URINE NEG (NEG); COCAINE, URINE NEG (NEG)
[2016-07-22 14:42] LABS: ALKALINE PHOSPHATASE 50 U/L (45-117); ALT (GPT) 18 U/L (12-78); ANION GAP 14 MEQ/L (5-15); AST (GOT) 47 U/L (15-37); BICARBONATE 23.2 MEQ/L (21.0-32.0); BLOOD UREA NITROGEN 28 MG/DL (7-18); CHLORIDE 87 MEQ/L (98-107); GLOMERULAR FILTRATION RATE 35 ML/MIN (>89); POTASSIUM 4.1 MEQ/L (3.5-5.1); TOTAL BILIRUBIN ADULT 0.2 MG/DL (0.2-1.0)
[2016-07-22 14:50] LABS: SODIUM (NA) 124 MEQ/L (136-145)
--- NOTE | 2016-07-22 15:24 | MB ---
cc: SAQIB LOVE MD DATE OF CONSULTATION: 07/22/2016 REASON FOR CONSULTATION Stroke Alert. HISTORY OF PRESENT ILLNESS Mr. Grier is a 66-year-old -[place] male who arrived as a Stroke Alert. He comes from an assisted living facility and it was noted that he had a change in speech an hour before arrival to the ER. EMS noticed a right facial droop, right point and pronator drift and called a Stroke Alert. At baseline the patient is diagnosed with dementia, schizophrenia and hypertension. He is on olanzapine, spironolactone, Mobic, metoprolol, Lasix, aspirin, Norvasc and Depakote ER [address] scan did not reveal any intracranial abnormality. A NIH Stroke Scale as per the emergency room attending was 5 for slurred speech, arm drift and possible facial droop. Labs were unremarkable with an INR of 1, platelet count of 130, UDS negative. However, sodium was low as 123 with a CK of 825. Vital signs revealed a blood pressure of 96/62 and a heart rate of 71. The patient was deemed a candidate for IV TPA, however, the patient did not verbally consent to receiving TPA. PAST MEDICAL HISTORY 1. Depression. 2. Hepatitis C positive. 3. Hypertension. 4. Schizophrenia. PAST SURGICAL HISTORY Nonapplicable. SOCIAL HISTORY Denies alcohol, tobacco and substance abuse. ALLERGIES No known allergies. MEDICATIONS 1. Spironolactone. 2. Olanzapine. 3. Metoprolol. 4. Mobic. 5. Lasix. 6. Aspirin. 7. Norvasc. 8. Depakote. REVIEW OF SYSTEMS A 12-point review of systems is negative except for what is stated in the HPI. PHYSICAL EXAMINATION VITAL SIGNS: Blood pressure 96/62, pulse 71 and regular GENERAL: Awake, alert, oriented to place, person and time and the patient is not in acute distress. HEENT: Atraumatic, normocephalic. Intact hearing. Intact vision. NECK: Trachea in the midline. No signs of meningeal irritation. HEART: Regular rate and rhythm. LUNGS: Clear to auscultation. No wheezes ABDOMEN: Soft. No tenderness. EXTREMITIES: No clubbing, cyanosis or edema. No obvious deformities noted. NEUROLOGIC: Awake, alert, oriented to time, person and place. Mild slurring of speech, questionable chronic/without dentures. Able to read, repeat and name objects; however, he was most of the time distracted and talks about the past and talking about funny incidents that happened to him. No facial asymmetry is noted. No abnormal external ocular motility; however, there is a positive blink reflex with mild mask-like facies. Right upper extremity with coarse tremor and cogwheel rigidity. Left upper extremity with no abnormal movement, normal tone. Bilateral lower extremities normal tone, no abnormal movement. Unable to accurately assess the muscle strength due to lack of cooperation from the patient; however, I did not appreciate a pronator drift and he could hold both lower extremities for more than 5 seconds. Sensation is intact bilateral and symmetrical. Cerebellar function is not accurately assessed because of lack of cooperation. Reflexes are 2+ bilateral and symmetrical. Plantars are bilaterally downgoing. LABORATORY White blood cell count 4.3, hemoglobin 10.9, hematocrit 33, platelet count 130. INR 1. Sodium 123, potassium 4, BUN 29, creatinine 2.3. UDS negative. IMAGING - Head CT scan with no acute intracranial abnormality. DIAGNOSTIC IMPRESSION 1. TIA/acute ischemic stroke. 2. Clinical features of an extrapyramidal disorder, Parkinson's disease. 3. Encephalopathy. - Possible etiology is metabolic with abnormal electrolyte and recent acute kidney injury and elevated CK. 5. Rhabdomyolysis. -The patient refused IV thrombolysis tPA, despite the fact that he was a candidate to receive it as per NIH Stroke Scale criteria. - Patient also refused to receive Plavix PLAN -Neuro-checks q.4 hourly. - Plavix 75mg - MRI brain without contrast. - Carotid ultrasound. - Telemetry. - Cardiac echo. - Fall precautions. - DVT prophylaxis, SCD. - PT and OT recommendations are appreciated. MD CAROL Morrison/BRANDON /2:40 PM /3:04 PM JOSEFA
[2016-07-22] MEDS: SODIUM CHLOR 0.9% 1000 ML INJ 1,000 ML IV SCH (15:40)
--- NOTE | 2016-07-22 17:57 | RADRPT ---
EXAM DATE/TIME: 07/22/2016 16:12 [facility] COMPARISON: No previous studies available for comparison. INDICATIONS : Cerebrovascular accident. MEDICAL HISTORY : Hypertension. Hepatitis C. Schizophrenia. SURGICAL HISTORY : Unable to obtain. ENCOUNTER: Initial ACUITY: 1 day PAIN SCORE: 0/10 LOCATION: Bilateral neck PEAK SYSTOLIC VELOCITIES (cm/sec): ICA/CCA RATIO: Right: 0.5 Left: 0.6 ICA: Right: 59 Left: 57 CCA: Right: 110 Left: 102 ECA: Right: 51 Left: 42 VERTEBRAL: Right: 49 antegrade Left: 82 antegrade Elevated flow velocities and ICA/CCA ratios have been found to correlate with increased degrees of vessel stenosis, calculated as percentage of diameter relative to a normal segment of distal ICA/CCA FINDINGS: RIGHT CAROTID: No significant stenosis is visualized. The waveforms are within normal limits. LEFT CAROTID: No significant stenosis is visualized. The waveforms are within normal limits. VERTEBRAL ARTERIES: Antegrade flow is seen in both vertebral arteries. MISCELLANEOUS: None. CONCLUSION: No evidence of flow-limiting carotid stenosis. Brock Hoskisn MD on July 22, 2016 at 17:54 Board Certified Radiologist. This report was verified electronically.
--- NOTE | 2016-07-22 18:25 | EKG ---
Date Performed: 07/22/2016 Time Performed: 12:34:48 PTAGE: 66 years EKG: Sinus rhythm NORMAL ECG PREVIOUS TRACING : 07/10/2016 01.20 No significant change from previous tracing noted. DOCTOR: Bill Thomson Interpretating Date/Time 07/22/2016 18:23:29
--- NOTE | 2016-07-22 19:23 | HHI.PR ---
Objective Objective Results - Vital Signs Date Time Temp Pulse Resp B/P Pulse Ox O2 Delivery O2 Flow Rate FiO2 07/22/16 16:18 98.0 79 18 99/71 94 07/22/16 14:04 98.6 81 16 143/70 94 Nasal Cannula 2 07/22/16 11:07 96 Nasal Cannula 2 07/22/16 11:07 96 2 07/22/16 10:39 98 Nasal Cannula 2.00 07/22/16 10:37 71 13 96/62 98 Result Diagram: 07/22/16 1041 07/22/16 1041 Other Results Laboratory Tests Test 07/22/16 07/22/16 10:41 11:45 White Blood Count 4.3 Red Blood Count 3.81 Hemoglobin 10.9 Bedside Hemoglobin 11.6 Hematocrit 33.0 Bedside Hematocrit 34.0 Mean Corpuscular Volume 86.6 Mean Corpuscular Hemoglobin 28.5 Mean Corpuscular Hemoglobin 33.0 Concent Red Cell Distribution Width 13.4 Platelet Count 130 Mean Platelet Volume 9.2 Neutrophils (%) (Auto) 60.6 Lymphocytes (%) (Auto) 27.0 Monocytes (%) (Auto) 11.8 Eosinophils (%) (Auto) 0.1 Basophils (%) (Auto) 0.5 Neutrophils # (Auto) 2.6 Lymphocytes # (Auto) 1.2 Monocytes # (Auto) 0.5 Eosinophils # (Auto) 0.0 Basophils # (Auto) 0.0 CBC Comment DIFF FINAL Differential Comment Prothrombin Time 10.8 Prothromb Time International 1.0 Ratio Activated Partial 30.9 Thromboplast Time Fibrinogen 220 Bedside Sodium 123 Sodium Level 124 Bedside Potassium 4.0 Potassium Level 4.1 Bedside Chloride 86 Chloride Level 87 Carbon Dioxide Level 23.2 Anion Gap 14 Bedside Blood Urea Nitrogen 29 Blood Urea Nitrogen 28 Creatinine 2.27 Bedside Creatinine 2.3 Estimat Glomerular Filtration 35 Rate Bedside Glucose 113 Random Glucose 109 Serum Osmolality 266 Calcium Level 8.6 Total Bilirubin 0.2 Aspartate Amino Transf 47 (AST/SGOT) Alanine Aminotransferase 18 (ALT/SGPT) Alkaline Phosphatase 50 Total Creatine Kinase 825 Creatine Kinase MB 7.5 Creatine Kinase MB % 0.9 Troponin I 0.02 Total Protein 6.3 Albumin 3.1 Thyroid Stimulating Hormone 1.200 3rd Gen Blood Type O POSITIVE Antibody Screen NEGATIVE Blood Bank Comment Urine Color YELLOW Urine Turbidity CLEAR Urine pH 6.0 Urine Specific [place] 1.007 Urine Protein NEG Urine Glucose (UA) NEG Urine Ketones NEG Urine Occult Blood NEG Urine Nitrite NEG Urine Bilirubin NEG Urine Urobilinogen LESS THAN 2.0 Urine Leukocyte Esterase NEG Urine RBC LESS THAN 1 Urine Bacteria RARE Urine Opiates Screen NEG Urine Barbiturates Screen NEG Urine Amphetamines Screen NEG Urine Benzodiazepines Screen NEG Urine Cocaine Screen NEG Urine Cannabinoids Screen NEG Physical Exam Physical Exam pt is seen & examined d/w pt , very impulsive /poor insight d/w darrick 'see orders see H&P will f/u Brendon Dominguez MD July 22, 2016 19:23
[2016-07-22] MEDS ORDERED: AMLO10TA2 PO (20:48)
[2016-07-22] MEDS ORDERED: ASPI-110 PO (20:48)
[2016-07-22] MEDS ORDERED: OLAN15TA PO (20:48)
[2016-07-22] MEDS ORDERED: FURO40TA PO (20:48)
[2016-07-22] MEDS ORDERED: METO50TA PO (20:48)
[2016-07-22] MEDS ORDERED: MOBI15TA PO (20:48)
[2016-07-22] MEDS ORDERED: PALI234P IM (20:48)
[2016-07-22] MEDS ORDERED: OLAN5TAB PO (20:48)
[2016-07-22] MEDS ORDERED: SPIR25TA PO (20:48)
[2016-07-22] MEDS ORDERED: DEPA500T3 PO (20:48)
[2016-07-23] VITALS (11 sets, daily range): BP systolic 120–160; BP diastolic 70–80; PULSE 90–119; RESP 18–20; TEMP 98.7–101.7; O2SAT 92–97
[2016-07-23] MEDS: CARVEDILOL 3.125 MG TAB PO SCH ×3 (00:01→23:30)
[2016-07-23] MEDS ORDERED: SODIUM CHLOR 0.9% 1000 ML INJ 1,000 ML IV ONE (00:30)
[2016-07-23] MEDS ORDERED: ONDANSETRON HCL 4 MG/2 ML VIAL IV PUSH PRN (00:30)
[2016-07-23 00:50] LABS: BICARBONATE 28.5 MEQ/L (21.0-32.0); MAGNESIUM 1.8 MG/DL (1.5-2.5); POTASSIUM 3.9 MEQ/L (3.5-5.1)
[2016-07-23] MEDS: ACETAMINOPHEN 325 MG TAB PO PRN ×2 (00:54→23:30)
[2016-07-23] MEDS: SODIUM CHLOR 0.9% 1000 ML INJ 1,000 ML IV SCH (02:55)
[2016-07-23 06:54] LABS: BLOOD, URINE NEG (NEG); COMMENT (UR) CULT NOT INDICATED; CULTURE IF INDICATED CULT NOT INDICATED; GLUCOSE,URINE NEG (NEG); KETONE, URINE 10 mg/dL (NEG); MUCUS URINE FEW /lpf (OCC); NITRITE,URINE NEG (NEG); URINE COLOR YELLOW (YELLW/STRAW)
--- NOTE | 2016-07-23 07:16 | RADRPT ---
EXAM DATE/TIME: 07/23/2016 06:03 [facility] COMPARISON: CHEST SINGLE AP, July 10, 2016, 1:00. INDICATIONS : Short of breath, fever MEDICAL HISTORY : Hypertension. Hepatitis C. CVA SURGICAL HISTORY : None. ENCOUNTER: Subsequent ACUITY: 2 days PAIN SCORE: Non-responsive. LOCATION: Bilateral chest FINDINGS: A single view of the chest demonstrates subsegmental basilar opacity most characteristic of atelectas is. No effusion. No pneumothorax. Heart size within normal limits. CONCLUSION: 1. Subsegmental basilar air space disease most characteristic of atelectasis. Zackery Farias MD on July 23, 2016 at 7:11 Board Certified Radiologist. This report was verified electronically.
--- NOTE | 2016-07-23 08:32 | MH ---
cc: BRENDON DOMINGUEZ MD DATE OF ADMISSION 07/22/2016 DATE OF [address] Dominguez REASON FOR ADMISSION Stroke. Travel in the last 30 days, none. HISTORY OF PRESENT ILLNESS This is an unfortunate 66-year-old black male who was brought into the emergency room with symptoms of CVA. It was noted at the ALS that his speech was slurred and he had a right facial droop. According to the record, in the emergency room the patient would occasionally answer questions but speech was still slurred and garbled at times. He is currently showing some delusions with situation. He thinks that someone is out to get him and that someone has poisoned him. According to the record the patient was complaining of some left ankle pain. There is a trace of edema noted but the patient denies any pain with tactile stimulation of the ankle. The patient is currently talking about getting out of the hospital in the morning. He is a tobacco user and wants to smoke. According to the record there was no consent given for any TPA. Most of the information is being gathered by the record secondary to the patient's altered mental status. PAST MEDICAL HISTORY 1. Depression. 2. Previous cerebrovascular accident. 3. Dementia. 4. Schizophrenia. 5. Hepatitis C. 6. Hypertension. 7. Hyponatremia. PAST SURGICAL HISTORY Unknown surgical history if any. ALLERGIES NONE KNOWN. MEDICATIONS Active include: 1. Amlodipine. 2. Aspirin. 3. Depakote. 4. Lasix. 5. Mobic. 6. Metoprolol. 7. Olanzapine. 8. Invega IM injections. 9. Spironolactone. SOCIAL HISTORY Tobacco abuse. No alcohol or illicit drug use to my knowledge. The patient is currently in an LONG-TERM setting. REVIEW OF SYSTEMS Unable to obtain due to the patient's delusions and altered mental status. Does occasionally answer simple yes or no questions. PHYSICAL EXAMINATION VITAL SIGNS: Temperature is 98, pulse 79, respirations 18, blood pressure labile between 99 and 71 and 143/70, O2 sat 94% currently on 2 liters nasal cannula. GENERAL: This is a 66-year-old black male resting on the bed. Mild upper extremity tremors noted. Responds to verbal stimuli. SKIN: Jones mucous membranes. Warm and dry. HEENT: Atraumatic, normocephalic. No drainage. No scleral icterus. Pupils equal, round, reactive to light and accommodation. Mucous membranes are pink and moist. NECK: Supple. CARDIOVASCULAR: S1-S2, regular rate and rhythm. No murmurs, rubs or gallops. RESPIRATORY: Essentially clear to auscultation. No wheezes, rales or rhonchi. GASTROINTESTINAL: Abdomen is flat, soft, nontender, nondistended. Active bowel sounds. 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 NEUROLOGIC: He is awake, alert but disoriented to time and situation. PSYCHIATRIC: Mood and affect are delusional. The patient is showing signs of paranoia that people where he lives are out to get him. LABORATORY DATA Diagnostic data, WBC count 4.3, RBC 3.81, hemoglobin 10.9, hematocrit 33, platelet count 130. Monocyte percentage auto is 11.8. PT/INR his one. Chemistry sodium is 124, potassium 4.1, chloride 87, carbon dioxide 23.2, anion gap 14, BUN is 28, creatinine 2.27. GFR is 35. Glucose is 109, calcium 8.6, bilirubin 0.2, AST 47, ALT 18, alkaline phosphatase 50. Total creatinine kinase 825. CK-MB 7.5. Troponin is 0.02. Albumin is 3.1, total protein 6.3. Urine is yellow clear, pH is 6.0. Specific gravity 1.007. Negative for protein, glucose, ketones, occult blood, nitrites bilirubin, leukocyte esterase. Rare bacteria. IMAGING Studies show CT scan with no acute intracranial findings. ASSESSMENT/PLAN 1. Cerebrovascular accident. 2. Severe hyponatremia. 3. Altered mental status. 4. History of schizophrenia and dementia. 5. History of hepatitis C. 6. Anemia. 7. Acute kidney injury. 8. Thrombocytopenia, mild. 9. Mild protein calorie malnutrition. Our plan is to monitor his vital signs and neurological checks q.2 times 12 and then q.4h and as warranted. The patient was worked up in the emergency room with labs and stroke alert. Neurological was consulted but the patient refused thrombolytic therapy. Neurological consult is appreciated and will continue to monitor during this hospital stay. We will monitor his Accu-Cheks per the stroke protocol times 48 hours. Currently he is showing low-normal with known with no known diabetes. Hyponatremia is being treated with IV hydration with normal saline. We will monitor labs in the morning and as needed for the patient's tremors and symptoms. Swallow check shows the patient has no dysphagia. We will start him on a healthy heart diet. He will receive Plavix and we will review his medications that he was on over at the LONG-TERM. Currently blood pressure is low, low normal. No blood pressure meds needed for now. The patient is admitted to inpatient status. After reviewing the chart with the nurse I see no family but there is a contact who has been working with this patient in assistance with LONG-TERM. O2 at 2 liters as needed. 2-D echocardiogram with Doppler study is currently being done. The patient will also have an ultrasound of the carotids. We will follow. Dictated by: YELENA Gonzales Brendon Dominguez MD MNA/KK /4:40 PM /8:29 AM pt is seen & examined d/w pt , very impulsive /poor insight d/w darrick 'see orders see H&P will f/u Brendon Dominguez MD July 22, 2016 19:23 [facility]
[2016-07-23] MEDS ORDERED: OLANZapine 5 MG TAB PO SCH (09:00)
[2016-07-23] MEDS: CLOPIDOGREL 75 MG TAB PO SCH (09:07)
[2016-07-23] MEDS ORDERED: DIVALPROEX SODIUM E.R. 500 MG TAB PO PRN (10:00)
[2016-07-23 11:01] LABS: BICARBONATE 24.3 MEQ/L (21.0-32.0)
--- NOTE | 2016-07-23 11:01 | RADRPT ---
EXAM DATE/TIME: 07/23/2016 10:14 [place] COMPARISON: CT BRAIN W/O CONTRAST, July 22, 2016, 10:47. INDICATIONS : Stroke. MEDICAL HISTORY : Hypertension. Hepatitis C. SURGICAL HISTORY : None. ENCOUNTER: Subsequent ACUITY: 2 day PAIN SCORE: 0/10 LOCATION: cranial TECHNIQUE: Multiplanar, multisequence MRI of the brain was performed without contrast. FINDINGS: CEREBRUM: The ventricles are normal for age. No evidence of midline shift, mass lesion, hemorrhage or acute in farction. No extraaxial fluid collections are seen. The pituitary gland and suprasellar cistern are normal in configuration. WHITE MATTER: Nearly confluent high T2 signal abnormality involving the periventricular white matter of both cerebr al hemispheres. POSTERIOR FOSSA: The cerebellum and brainstem are intact. The 4th ventricle is midline. The cerebellopontine angle is unremarkable. The cerebellar tonsils are normal in position. DIFFUSION IMAGING: No focal areas of restricted diffusion are seen. No evidence of acute infarction. EXTRACRANIAL: The visualized portions of the orbits are unremarkable. Mucosal thickening without air-fluid level se en involving the maxillary sinuses and ethmoid air cells bilaterally. CONCLUSION: 1. No acute intracranial abnormality. 2. Chronic small vessel ischemic change. 3. Chronic paranasal sinus disease. Jamil Nicole Jr., MD on July 23, 2016 at 10:55 Board Certified Radiologist. This report was verified electronically.
[2016-07-23] MEDS: ASPIRIN EC 81 MG TABEC PO SCH (11:26)
--- NOTE | 2016-07-23 11:56 | EKG ---
Date Performed: 07/22/2016 Time Performed: 23:50:50 PTAGE: 66 years EKG: Sinus tachycardia Left bundle branch block Abnormal ECG PREVIOUS TRACING : 07/22/2016 12.34 Compared to previous tracing, left bundle branch block is n ow present, heart rate has increased. DOCTOR: Bill Thomson Interpretating Date/Time 07/23/2016 11:54:13
--- NOTE | 2016-07-23 12:49 | HHI.PR ---
Subjective Remarks Up in chair Alert, talkative but with altered mental status Patient denies having stroke Wants to discharge today or soon as possible Moves lower and upper extremities left and right on command (Ruth Guardado) Objective Objective Results - Vital Signs Date Time Temp Pulse Resp B/P Pulse Ox O2 Delivery O2 Flow Rate FiO2 07/23/16 12:15 99.0 94 20 120/73 92 07/23/16 11:36 95 Nasal Cannula 2.00 07/23/16 08:19 99.3 96 20 131/80 95 07/23/16 04:00 98.7 90 20 126/70 97 07/23/16 03:32 99.1 99 19 97 07/23/16 00:00 101.7 119 18 143/79 96 07/22/16 23:26 126 07/22/16 22:16 95 Nasal Cannula 2.00 07/22/16 20:10 97 07/22/16 20:00 100.4 106 18 126/69 98 07/22/16 16:18 98.0 79 18 99/71 94 07/22/16 14:04 98.6 81 16 143/70 94 Nasal Cannula 2 I/O 07/22/16 07/22/16 07/22/16 07/23/16 07/23/16 07/23/16 07:00 15:00 23:00 07:00 15:00 23:00 Output Total 600 ml Balance -600 ml Output Urine Total 600 ml # Voids 2 # Bowel Movements 0 0 (Ruth Guardado) Result Diagram: 07/22/16 1041 07/23/16 0943 ROS General: Weakness (generalized moving left and right extremities), Other (10 point ROS done positives noted other systems unremarkable or negative) Pulmonary: Cough (occasional) Neuro/MS: Other (CVA 07/22/16) (Ruth Guardado) Physical Exam Physical Exam PHYSICAL EXAMINATION GENERAL: This is a well-developed, well-nourished male who appears to be in no acute distress. He is awake, HEAD: Normocephalic without any lesion or mass noted. Facial features appear asymmetric mild. OROPHARYNGEAL: Oropharynx without erythema or edema. NECK: Supple. No nuchal rigidity or lymphadenopathy. Trachea midline without deviation. CARDIAC: Regular rhythm, regular rate, S1 and S2 are heard. LUNGS: Clear to auscultation bilaterally. No shortness of breath ABDOMEN: Soft, nontender, no organomegaly or masses. Bowel sounds are heard in all four quadrants. No rebound. No guarding. EXTREMITIES: no edema. Pulses palpable NEUROLOGICAL: Patient mood and affect appropriate. Mild anxiety and restlessness Speech understandable today, waxes and wanes SKIN:Warm and moist, dry mucous membranes Objective Remarks I didn't really have a stroke (Ruth Guardado) A/P Assessment and Plan 1. Cerebrovascular accident. 2. Severe hyponatremia. 3. Altered mental status. 4. History of schizophrenia and dementia. 5. History of hepatitis C. 6. Anemia. 7. Acute kidney injury. 8. Thrombocytopenia, mild. 9. Mild protein calorie malnutrition. CVA, patient is now moving both extremities upper and lower, still has mild speech impediment, alert, but still delusional over no CVA. Medical management for his comorbidities. Still has altered mental status to time and situation History of schizophrenia and dementia , outpatient meds restarted Appreciate neuro consult and following Anemia secondary to probable chronic disease, monitor History of hepatitis C, medical management Acute kidney injury , essentially unchanged monitor labs Hyponatremia improved 134 Thrombocytopenia, patient's on aspirin and Plavix, will monitor for any acute low drops or signs of bleeding DVT prophylaxis with Plavix and aspirin Discharge planning, probably later in the week Physical therapy and occupational therapy initiated ST for cognitive and swallow (Ruth Guardado) Assessment and Plan pt is seen & Examined d/w PT d/w ruth Neuro input appreciated cont current tx PT eval; ss for d/c planning will f/u (Brendon Dominguez MD) Ruth Guardado July 23, 2016 12:49 Brendon Dominguez MD July 23, 2016 13:55
[2016-07-23] MEDS: METOPROLOL TARTRATE 50 MG TAB PO SCH (23:30)
[2016-07-24] VITALS (8 sets, daily range): BP systolic 116–142; BP diastolic 69–76; PULSE 84–96; RESP 17–20; TEMP 96.9–102; O2SAT 92–98
[2016-07-24 08:23] LABS: HEMATOCRIT 36.6 % (39.0-51.0); MEAN CELL VOLUME 86.9 FL (80.0-100.0); MEAN CORPUSCULAR HEMOGLOBIN 29.4 PG (27.0-34.0); MEAN CORPUSCULAR HGB CONC 33.8 % (32.0-36.0); PLATELET COUNT 152 TH/MM3 (150-450); RED BLOOD COUNT 4.21 MIL/MM3 (4.50-5.90); RED CELL DISTRIBUTION WIDTH 13.9 % (11.6-17.2); REVIEW FLAG FINAL; WHITE BLOOD COUNT 4.5 TH/MM3 (4.0-11.0)
[2016-07-24 08:50] LABS: BICARBONATE 27.1 MEQ/L (21.0-32.0); POTASSIUM 4.2 MEQ/L (3.5-5.1)
[2016-07-24] MEDS ORDERED: SPIRONOLACTONE 25 MG TAB PO SCH (09:00)
[2016-07-24] MEDS ORDERED: OLANZapine 5 MG TAB PO SCH (09:00)
[2016-07-24] MEDS: ASPIRIN EC 81 MG TABEC PO SCH (10:35)
[2016-07-24] MEDS: CLOPIDOGREL 75 MG TAB PO SCH (10:36)
[2016-07-24] MEDS: CARVEDILOL 3.125 MG TAB PO SCH (10:37)
[2016-07-24] MEDS: METOPROLOL TARTRATE 50 MG TAB PO SCH (10:37)
--- NOTE | 2016-07-24 10:38 | EC ---
Study Study Date:07/24/2016 STUDY CONCLUSIONS SUMMARY - Procedure narrative: Transthoracic echocardiography. Image quality was fair. Scanning was performed from the parasternal, apical, and subcostal acoustic windows. - Left ventricle: The cavity size was normal. Wall thickness was normal. Systolic function was vigorous. The estimated ejection fraction was in the range of 65% to 70%. Wall motion was normal; there were no regional wall motion abnormalities. - Tricuspid valve: Trace regurgitation. If LV function is below 40, please consider prescribing an ACEI or ARB or document rationale for non-use. PROCEDURE DATA STUDY STATUS: Elective. Procedure: Transthoracic echocardiography. Image quality was fair. Scanning was performed from the parasternal, apical, and subcostal acoustic windows. Study completion: The patient tolerated the procedure well. Transthoracic echocardiography. M-mode, complete 2D, complete spectral Doppler, and color Doppler. Height: Height: 72in. Weight: Weight: 180.6lb. Body mass index: BMI: 24.5kg/m^2. Body surface area: BSA: 2.04m^2. Patient status: Inpatient. CARDIAC ANATOMY LEFT VENTRICLE: The cavity size was normal. Wall thickness was normal. Systolic function was vigorous. The estimated ejection fraction was in the range of 65% to 70%. Wall motion was normal; there were no regional wall motion abnormalities. AORTIC VALVE: Trileaflet; normal thickness leaflets. Doppler: Transvalvular velocity was within the normal range. There was no stenosis. No regurgitation. Indexed valve area: 0.97cm^2/m^2 (VTI). Indexed valve area: 0.98cm^2/m^2 (Vmax). Mean gradient: 6mm Hg (S). Peak gradient: 12mm Hg (S). AORTA: Aortic root: The aortic root was normal in size. MITRAL VALVE: Structurally normal valve. Doppler: Transvalvular velocity was within the normal range. There was no evidence for stenosis. No regurgitation. LEFT ATRIUM: The atrium was normal in size. RIGHT VENTRICLE: The cavity size was normal. Wall thickness was normal. PULMONIC VALVE: Doppler: Transvalvular velocity was within the normal range. There was no evidence for stenosis. No regurgitation. TRICUSPID VALVE: Structurally normal valve. Doppler: Transvalvular velocity was within the normal range. Trace regurgitation. PULMONARY ARTERY: The main pulmonary artery was normal-sized. Systolic pressure was within the normal range. RIGHT ATRIUM: The atrium was normal in size. PERICARDIUM: There was no pericardial effusion. SYSTEMIC VEINS: Inferior vena cava: The vessel was normal in size. Patient weight: 180.6lb _Ejection fraction:_ 65-75% _Fractional shortening:_ 32% up to 5Kg 5-11.5Kg 11.6-22.9Kg 23-45Kg 45-57Kg Aortic Root 7-13 <17 13-22 17-27 17-27 LA diam 6-13 <23 24-38 33-47 37-40 RVID 10-17 7-15 7-15 7-18 8-17 LVIDd 12-22 <32 24-38 33-47 37-40 LVPW 2-4 3-6 5-7 6-8 7-8 IVS 2-4 3-6 5-7 6-8 7-8 BASIC MEASUREMENTS ADULT NORMAL Left ventricle LV internal dimension, ED, chordal *33.4 mm 43-52 level, PLAX LV internal dimension, ES, chordal *22.8 mm 23-38 level, PLAX Fractional shortening, chordal level, 32 % >29 PLAX LV posterior wall thickness, ED 10.7 mm IVS/LVPW ratio, ED 0.99 <1.3 Ventricular septum Septal thickness, ED 10.6 mm Aortic valve Leaflet separation 18 mm 15-26 Aorta Root diameter, ED 29 mm Left atrium Anterior-posterior dimension 23 mm Anterior-posterior dimension index 1.13 cm/m^2 <2.2 BASIC MEASUREMENTS ADULT NORMAL Aortic valve Leaflet separation 18 mm 15-26 DOPPLER MEASUREMENTS ADULT NORMAL Aortic valve Peak velocity, S 175 cm/s Mean velocity, S 114 cm/s VTI, S 33.1 cm Mean gradient, S 6 mm Hg Peak gradient, S 12 mm Hg Valve area index, VTI 0.97 cm^2/m^2 Valve area index, Vmax 0.98 cm^2/m^2 Mitral valve Peak E-wave velocity 55.3 cm/s Peak A-wave velocity 78 cm/s Deceleration time *261 ms 150-230 Peak E/A ratio 0.7 Pulmonic valve Peak velocity, S 60.2 cm/s LEGEND: Mean values are shown as u=mean value. Asterisk (*) bautista values outside specified normal range. Prepared and signed by Bill Thomson [id number]
--- NOTE | 2016-07-24 12:23 | HHI.DCPOC ---
Discharge Care Plan Diagnosis: (1) Stroke (2) HERMAN (acute kidney injury) (3) History of schizophrenia (4) Hyponatremia Your Health Problems Are: Anxiety Difficulty with ADL Goals to Promote Your Health * To prevent worsening of your condition and complications * To maintain your health at the optimal level Directions to Meet Your Goals Take your medications as prescribed Follow your dietary instruction Follow activity as directed Keep your appointments as scheduled Take your immunizations and boosters as scheduled If your symptoms worsen call your PCP, if no PCP go to Urgent Care Center or Emergency Room Smoking is Dangerous to Your Health. Avoid second hand smoke Call the 24-hour hour crisis hotline for domestic abuse at Jeanna Jennings. [facility] July 24, 2016 12:23
--- NOTE | 2016-07-24 12:59 | HHI.PR ---
Subjective Subjective Remarks edentulous speech dysarthric ambulatory oriented to self and place no cp no sob wants to make sure we order his cigarettes when he goes back to [facility] Review of Systems Constitutional Constitutional Remarks 12 point ROS difficult to do Vitals/Results Intake & Output 07/23/16 07/23/16 07/24/16 15:00 23:00 07:00 Intake Total 600 ml 120 ml Output Total 250 ml Balance 600 ml -130 ml Intake Oral 600 ml 120 ml Output Urine Total 250 ml # Voids 3 1 # Bowel Movements 1 Vital Signs Vital Signs Date Time Temp Pulse Resp B/P Pulse Ox O2 Delivery O2 Flow Rate FiO2 07/24/16 12:01 97 21 07/24/16 11:55 99.3 94 19 119/69 97 07/24/16 08:00 98.7 87 20 142/76 92 07/24/16 05:20 98.9 84 17 123/74 94 07/24/16 01:30 99.8 07/24/16 00:54 102.0 07/23/16 23:23 101.3 117 18 160/75 94 07/23/16 21:11 95 Nasal Cannula 2.00 07/23/16 19:30 108 07/23/16 16:34 99.2 99 20 145/76 93 CBC/BMP: 07/24/16 0651 07/24/16 0651 Lab Results Laboratory Tests Test 07/24/16 06:51 White Blood Count 4.5 TH/MM3 Red Blood Count 4.21 MIL/MM3 Hemoglobin 12.4 GM/DL Hematocrit 36.6 % Mean Corpuscular Volume 86.9 FL Mean Corpuscular Hemoglobin 29.4 PG Mean Corpuscular Hemoglobin 33.8 % Concent Red Cell Distribution Width 13.9 % Platelet Count 152 TH/MM3 Mean Platelet Volume 9.4 FL Sodium Level 134 MEQ/L Potassium Level 4.2 MEQ/L Chloride Level 99 MEQ/L Carbon Dioxide Level 27.1 MEQ/L Anion Gap 8 MEQ/L Blood Urea Nitrogen 15 MG/DL Creatinine 1.06 MG/DL Estimat Glomerular Filtration 85 ML/MIN Rate Random Glucose 74 MG/DL Calcium Level 9.2 MG/DL Physical Exam General General Appearance: Well Developed, No Acute Distress, Comfortable Eyes Eye Exam: Pupils Equal, Pupils Reactive Ears & Nose Ears & Nose Exam: Nasal Mucosa [place] Throat Throat Exam: Oral Mucosa [place] & Moist Neck Neck Exam: Neck Supple, Trachea Midline Pulmonary Resp Exam: Rhonchi, Diminished Breath Sounds Gastrointestinal/Abdomen GI Exam: Soft, Non-Tender, Bowel Sounds Present, Non-Distended Musculoskeletal MS Exam: Joints Intact Integumentary Skin Exam: Warm, Dry Extremeties Extremities Exam: Pedal Pulses Palpable, Trace Edema Neurologic Neuro Exam: Alert, Awake, Moving All Extremities VTE Prophylaxis VTE Prophylaxis Device: SCDs Assessment/Plan Assessment/Plan 1. Cerebrovascular accident. 2. Severe hyponatremia. 3. Altered mental status. 4. History of schizophrenia and dementia. 5. History of hepatitis C. 6. Anemia. 7. Acute kidney injury. 8. Thrombocytopenia, mild. 9. Mild protein calorie malnutrition. Plan CVA, declined, TPA neuro work up done Echo done, EF 65-70% patient is now moving both extremities upper and lower, still has dysarthra appreciate neurology input continue ASA and Plavix Lipid Profile done PT/OT/ST History of schizophrenia and dementia continue home meds HERMAN, creat improving off IVF enc. PO intake Thrombocytopenia, patient's on aspirin and Plavix, will monitor for any acute low drops or signs of bleeding Fever last night, no cough, no sputum no temp today CXR no acute findings UA okay DVT prophylaxis with SCDs CM for dc planning, HHC, ST, PT poss. dc today F/U PCP, psych Diet-heart healthy Activity-as tolerated Counselled not to smoke D/W RN D/W CM D/W Pt. D/W Dr. Dominguez This patient was seen by myself and Dr. Dominguez, this note is written on his behalf. Jeanna Jennings July 24, 2016 12:59
--- NOTE | 2016-07-24 13:02 | HHI.FF ---
Face to Face Verification Diagnosis: (1) Hyponatremia (2) Stroke (3) History of schizophrenia (4) HERMAN (acute kidney injury) Physical Therapy Order: Evaluate and Treat Speech Therapy Order: To Improve: Speech and communication skills, Swallowing Home Health Nursing Order: Medical education Nursing assessment with vital signs I have seen patient Ney Grier on 07/24/16. My clinical findings support the need for the requested home health care services because: Impaired cognition/judgement I certify that my clinical findings support that this patient is homebound because: Impaired cognitive ability/safety Need for psychosocial assistance Jeanna Jennings [facility] July 24, 2016 13:02
[2016-07-24] MEDS ORDERED: PLAV75TA29 PO (16:08)
--- NOTE | 2016-07-25 14:41 | HHI.DS ---
Discharge Summary Admission Date July 22, 2016 at 11:48 Discharge Date: July 24, 2016 Admitting Diagnosis CVA, AMS, HERMAN (1) Stroke (2) Hyponatremia (3) History of schizophrenia (4) HREMAN (acute kidney injury) CBC/BMP: 07/24/16 0651 07/24/16 0651 Significant Findings Laboratory Tests Test 07/23/16 07/23/16 07/23/16 07/24/16 00:20 05:30 09:43 06:51 Sodium Level 131 MEQ/L 134 MEQ/L 134 MEQ/L (136-145) (136-145) (136-145) Chloride Level 94 MEQ/L 97 MEQ/L (98-107) (98-107) Blood Urea Nitrogen 24 MG/DL (7-18) 19 MG/DL (7-18) Creatinine 1.46 MG/DL 1.33 MG/DL (0.60-1.30) (0.60-1.30) Estimat Glomerular Filtration 59 ML/MIN (>89) 66 ML/MIN (>89) 85 ML/MIN (>89) Rate Urine Ketones 10 mg/dL (NEG) Urine Mucus FEW /lpf (OCC) Random Glucose 71 MG/DL (74-106) Cholesterol Level 118 MG/DL (120-200) HDL Cholesterol 62.0 MG/DL (40.0-60.0) Red Blood Count 4.21 MIL/MM3 (4.50-5.90) Hemoglobin 12.4 GM/DL (13.0-17.0) Hematocrit 36.6 % (39.0-51.0) Imaging Last Impressions Chest X-Ray 07/23/16 0000 Signed Impressions: Service Date/Time: Saturday, July 23, 2016 06:03 - CONCLUSION: 1. Subsegmental basilar air space disease most characteristic of atelectasis. Zackery Farias MD Brain MRI 07/23/16 0000 Signed Impressions: Service Date/Time: Saturday, July 23, 2016 10:14 - CONCLUSION: 1. No acute intracranial abnormality. 2. Chronic small vessel ischemic change. 3. Chronic paranasal sinus disease. Jamil Nicole Jr., MD Head CT 07/22/16 0000 Signed Impressions: Service Date/Time: Friday, July 22, 2016 10:47 - CONCLUSION: No acute intracranial findings. Brock Hoskins MD Carotid Artery Ultrasound 07/22/16 0000 Signed Impressions: Service Date/Time: Friday, July 22, 2016 16:12 - CONCLUSION: No evidence of flow-limiting carotid stenosis. Brock Hoskins MD Hospital Course Mr. Grier is a 66-year-old -Italian male who arrived as a Stroke Alert. He comes from an assisted living facility and it was noted that he had a change in speech an hour before arrival to the ER. EMS noticed a right facial droop, right point and pronator drift and called a Stroke Alert. At baseline the patient is diagnosed with dementia, schizophrenia and hypertension. He is on olanzapine, spironolactone, Mobic, metoprolol, Lasix, aspirin, Norvasc and Depakote ER [address] scan did not reveal any intracranial abnormality. A NIH Stroke Scale as per the emergency room attending was 5 for slurred speech, arm drift and possible facial droop. Labs were unremarkable with an INR of 1, platelet count of 130, UDS negative. However, sodium was low as 123 with a CK of 825. Vital signs revealed a blood pressure of 96/62 and a heart rate of 71. The patient was deemed a candidate for IV TPA, however, the patient did not verbally consent to receiving TPA Was admitted for: 1. Cerebrovascular accident. 2. Severe hyponatremia. 3. Altered mental status. 4. History of schizophrenia and dementia. 5. History of hepatitis C. 6. Anemia. 7. Acute kidney injury. 8. Thrombocytopenia, mild. 9. Mild protein calorie malnutrition. During the course of the hospitalization, the following took place: IVF, neuro checks and neurology consultation ordered. Neuro work up done. PT. continued on Plavix. Echo done, EF 65-70% patient did improve- now moving both extremities upper and lower, still had dysarthria appreciated neurology input recommended to continue ASA and Plavix. Pt. did accept Plavix Lipid Profile done PT/OT/ST were ordered. History of schizophrenia and dementia continued home meds HERMAN, creat improved after IVF enc. PO intake Thrombocytopenia, patient's on aspirin and Plavix, monitored for any drops or signs of bleeding Plat stable Had an episode of fever , no cough, no sputum afebrile the next day CXR no acute findings CATHRYN richey CM consulted for dc planning--HHC, ST, PT Discharged in stable condition. No further neuro events. Poss. TIA Instructed to: F/U PCP, psych Diet-heart healthy Activity-as tolerated Counselled not to smoke Pt Condition on Discharge: Stable Discharge Disposition: ACLF/WILL Discharge Instructions DIET: Follow Instructions for: Heart Healthy Diet Speech Therapy-Diet Recommends: Mechanical Soft Fluid Restrictions: none Activities you can perform: Weight Bearing as Tj Follow up Referrals: Neurology - 3 Weeks PCP Follow-up New Medications: Clopidogrel (Plavix) 75 Mg Tab 75 MG PO DAILY tia #30 TAB Continued Medications: Amlodipine (Amlodipine) 10 Mg Tab 10 MG PO DAILY Blood Pressure Management #30 Ref [address] (Aspirin 81) 81 Mg Tabdr 81 MG PO DAILY Ref 0 TAB Divalproex ER (Depakote ER) 500 Mg Rosales 500 MG PO BID PRN Control Seizures #30 Ref 0 TAB Metoprolol Tartrate (Metoprolol Tartrate) 50 Mg Tab 50 MG PO BID #60 Ref 0 TAB Olanzapine (Olanzapine) 15 Mg Tab 15 MG PO DAILY #30 Ref 0 TAB Olanzapine (Olanzapine) 5 Mg Tab 5 MG PO DAILY #30 Ref 0 TAB Paliperidone Palmitate Inj (Invega Sustenna Inj) 234 Mg/1.5 Ml Inj 234 MG IM ONCE Schizophrenia Days 30 Ref 0 VIAL Spironolactone (Spironolactone) 25 Mg Tab 25 MG PO DAILY #30 Ref 0 TAB Discontinued Medications: Furosemide (Furosemide) 40 Mg Tab 40 MG PO DAILY #30 Ref 0 TAB Meloxicam (Mobic) 15 Mg Tab 15 MG PO DAILY Ref 0 TAB Jeanna Jennings [facility] July 25, 2016 14:41
== END 2016-07-24 17:40 | DRG 64 ==
LOC: NEPE 10:34 → NEDA 11:48 → N05A 14:28 → N05B 07-23 19:23
PROVIDERS: ADMIT Specialist; ATTEND Specialist
DX: I63.9 Cerebral infarction, unspecified (principal); G93.40 Encephalopathy, unspecified; N17.9 Acute kidney failure, unspecified; E87.1 Hypo-osmolality and hyponatremia; F03.90 Unspecified dementia, unspecified severity, without behavioral disturbance, psychotic disturbance, mood disturbance, and anxiety; R47.1 Dysarthria and anarthria; I69.992 Facial weakness following unspecified cerebrovascular disease; D69.6 Thrombocytopenia, unspecified; E44.1 Mild protein-calorie malnutrition; F20.9 Schizophrenia, unspecified; B19.20 Unspecified viral hepatitis C without hepatic coma; Z68.24 Body mass index [BMI] 24.0-24.9, adult; Z86.73 Personal history of transient ischemic attack (TIA), and cerebral infarction without residual deficits; I10 Essential (primary) hypertension; F17.210 Nicotine dependence, cigarettes, uncomplicated; R50.9 Fever, unspecified; Z79.82 Long term (current) use of aspirin; D63.8 Anemia in other chronic diseases classified elsewhere
CPT/HCPCS: 70450; 70551; 71010; 80048; 80053; 80061; 80307; 81001; 82140; 82435; 82533; 82550; 82552; 82565; 82947; 83605; 83735; 83930; 83935; 84132; 84145; 84295; 84443; 84484; 84520; 85025; 85027; 85384; 85610; 85730; 86850; 86900; 86901; 87040; 87205; 93005; 93306; 93880; J2310; J7030